=== PATIENT | female | born 1955 | race Caucasian/White ===

== ENCOUNTER 2022-06-15 06:13 | Day surgery (SDC) | payer MEDICARE ==
[2022-06-15] MEDS ORDERED: Lactated Ringers 1,000 ML IV SCH (06:30)
[2022-06-15] MEDS ORDERED: Versed 2 MG/2 ML Injection ONE (07:58)
[2022-06-15] MEDS ORDERED: Xylocaine-Mpf 2% 5 Ml Vial ONE (07:58)
[2022-06-15] MEDS ORDERED: DIPRIVAN 200 MG/20 ML IV ONE ×2 (07:58→08:30)
--- NOTE | 2022-06-15 08:56 | OP ---
SURGERY DATE/TIME: 06/15/2022 0810 PREOPERATIVE DIAGNOSIS: Anemia. POSTOPERATIVE DIAGNOSES: 1) Normal EGD. 2) Sigmoid colon polyp. 3) Internal hemorrhoids. PROCEDURES: 1) EGD. 2) Colonoscopy. SURGEON: Tray Barr M.D. ANESTHESIA: MAC by John Sinclair CRNA. ESTIMATED BLOOD LOSS: Minimal. SPECIMENS: Hot forceps polypectomy from the sigmoid colon. DESCRIPTION OF PROCEDURE: After informed written consent was obtained, the patient was taken to the endoscopy suite. He had a bite block inserted and then anesthesia was titrated to desired level of consciousness. The endoscope was inserted in the posterior oropharynx and under direct visualization the esophagus was traversed. Esophageal mucosa was normal in appearance. The gastroesophageal junction likewise was normal. Upon entering the stomach there is normal rugated gastric mucosa. There were no ulcerations or signs of bleeding in the gastric cavity. The pylorus was traversed. The first and second portions of the duodenum had normal mucosal appearance. On withdrawal again all mucosal structures were noted to be normal. The scope was removed and the scopes were switched. Digital rectal exam showed normal sphincter tone and no internal lesions. The scope was inserted in the rectum and sequentially the entire colonic mucosa was traversed. The level of the cecum was reached and verified with direct visualization of the ileocecal valve. Upon withdrawal careful mucosal inspection revealed small sessile polyps in the sigmoid colon which was grasped with forceps, cauterized and removed in its entirety and sent for pathology testing. Retroflexion was performed showed internal hemorrhoids and no other lesions. The scope was removed and the patient was transferred to the recovery room in good condition.
[2022-06-15 09:18] VITALS: O2SAT 98
[2022-06-15 09:30] VITALS: BP 174/84; PULSE 64
== END 2022-06-15 09:35 | disposition home or self-care (01) ==
LOC: SDC 06:13
PROVIDERS: ATTEND Family Medicine
DX: K63.5 Polyp of colon (principal); D64.9 Anemia, unspecified; K64.8 Other hemorrhoids; E11.9 Type 2 diabetes mellitus without complications
CPT/HCPCS: 82947; J2250; J2704

== ENCOUNTER 2024-03-05 11:39 | Emergency (ER) | payer MEDICARE ==
[2024-03-05 12:00] VITALS: RESP 18; TEMP 97.2
--- NOTE | 2024-03-05 12:19 | ERPHSYRPT ---
- History of Present Illness Time Seen by Provider: 03/05/24 12:10 Source: patient Exam Limitations: no limitations Patient Subjective Stated Complaint: Pt states "I started bactrim on the and it started to drain on the and it feels much better but Dr. Armenta w anted me to come here to maybe get it drained more." Triage Nursing Assessment: Pt presented alert and oriented X 3, skin wpd. Pt ambulates with an upright steady gait, able to speak in clear full sentences. PT has approx 4 cm x 4 xcm abscess noted to medial lower back. Physician History: 68-year-old female presents to emergency department as a referral from primary care doctor for imaging of a abscess to her low back. Patient has been on Bactrim for over 8 days. Primary care physician concern for abscess that may need to be surgically drained. Patient states the abscess has been draining slowly over time. No systemic manifestations regarding this abscess. Patient currently on Bactrim at this time. Patient otherwise feels well. She voices no other complaints or concerns at this time. Portions of this note were created with voice recognition technology. There may be grammatical, spelling, punctuation or sound alike errors Timing/Duration: today Severity: moderate Modifying Factors: Improves With: nothing Associated Symptoms: denies symptoms Allergies/Adverse Reactions: No Known Drug Allergies Allergy (Verified 06/15/22 07:01) Home Medications: Aspirin 81 mg PO DAILY 09/24/15 [History] Furosemide 40 mg [Lasix 40 MG] 40 mg PO DAILY 09/24/15 [History] Gabapentin [Neurontin] 300 mg PO TID 09/24/15 [History] Lisinopril 10 mg [Zestril 10 MG] 10 mg PO DAILY 09/24/15 [History] Metformin HCl 1000 mg [Glucophage 1000 MG] 1,000 mg PO BID 09/24/15 [History] Potassium Chloride 20 Meq [Klor-Con 20 MEQ] 20 meq PO DAILY 09/24/15 [History] Allopurinol 100 mg [Zyloprim 100 mg] 100 mg PO BID 04/22/22 [History] Insulin Aspart (Niacinamide) [Fiasp 100 Unit/ml Vial] See Rx Instructions .ROUTE .COMPLEX 04/22/22 [History] Pramipexole Di-HCl [Pramipexole Dihydrochloride] 0.125 mg PO DIRECTIONS UNKNOWN 04/22/22 [History] Semaglutide [Rybelsus] 14 mg PO DAILY 04/22/22 [History] Simvastatin 40 mg PO DAILY 04/22/22 [History] icosapent ethyL [Vascepa] 1 gm PO BID 04/22/22 [History] Insulin Pump Cart,Automated,Bt [Omnipod 5 G6 Pods (Gen 5)] 1 unit SQ PER HOUR 06/15/22 [History] Multivit with Iron,Minerals [Theratrum Complete 50 Plus] 1 tab PO DAILY 06/15/22 [History] Hx Tetanus, Diphtheria Vaccination/Date Given: No Hx Influenza Vaccination/Date Given: Yes Hx Pneumococcal Vaccination/Date Given: No Immunizations Up to Date: No Travel Risk - International Travel Have you traveled outside of the country in past 3 weeks: No - Emerging Infectious Disease Are you exhibiting symptoms associated with any current EIDs: No - Review of Systems Constitutional: No Symptoms, No Fever, No Chills Eyes: No Symptoms Ears, Nose, & Throat: No Symptoms Respiratory: No Symptoms, No Cough, No Dyspnea Cardiac: No Symptoms, No Chest Pain, No Edema, No Syncope Abdominal/Gastrointestinal: No Symptoms, No Abdominal Pain, No Nausea, No Vomiting, No Diarrhea Genitourinary Symptoms: No Symptoms, No Dysuria Musculoskeletal: No Symptoms, No Back Pain, No Neck Pain Skin: No Symptoms, No Rash Neurological: No Symptoms, No Dizziness, No Focal Weakness, No Sensory Changes Psychological: No Symptoms Endocrine: No Symptoms Hematologic/Lymphatic: No Symptoms Immunological/Allergic: No Symptoms All Other Systems: Reviewed and Negative - Past Medical History Pertinent Past Medical History: Yes Neurological History: Peripheral Neuropathy ENT History: No Pertinent History Cardiac History: Hypertension Respiratory History: No Pertinent History Endocrine Medical History: Diabetes Type II Musculoskeletal History: Osteoarthritis GI Medical History: No Pertinent History History: No Pertinent History Psycho-Social History: No Pertinent History Female Reproductive Disorders: No Pertinent History Other Medical History: NEUROPATHY IN B FEET AND HANDS. POSSIBLE HEART VALVE PROBLEM. L FOOT OA, GOUT. - Past Surgical History Past Surgical History: Yes Neuro Surgical History: No Pertinent History Cardiac: No Pertinent History Respiratory: No Pertinent History Gastrointestinal: No Pertinent History Genitourinary: No Pertinent History Musculoskeletal: Orthopedic Surgery Female Surgical History: No Pertinent History Other Surgical History: left foot. cysts removed from labia x3 - Social History Smoking Status: Never smoker Exposure to second hand smoke: No Drug Use: none Patient Lives Alone: No - Social Determinants of Health Will the patient participate in the screening: Yes Do you worry about a steady place to live?: No Do you have any problems with any of the following?: No known problems In the past 12 months,have you had to go without utilities?: No Transportation Issues: No Has anyone in your support network made you feel unsafe?: No Have you or anyone in your house had to go without enough: No - Nursing Vital Signs Nursing Vital Signs: Initial Vital Signs Temperature 97.2 F 03/05/24 11:55 Pulse Rate 65 03/05/24 11:55 Respiratory Rate 18 03/05/24 11:55 Blood Pressure 105/45 03/05/24 11:55 O2 Sat by Pulse Oximetry 98 03/05/24 11:55 Pain Scale Pain Intensity 0 - Physical Exam General Appearance: no apparent distress, alert Eye Exam: PERRL/EOMI, eyes nml inspection Ears, Nose, Throat Exam: normal ENT inspection, moist mucous membranes Neck Exam: normal inspection, non-tender, supple, full range of motion Respiratory Exam: normal breath sounds, lungs clear, airway intact, No respiratory distress Cardiovascular Exam: regular rate/rhythm, normal heart sounds, normal peripheral pulses Gastrointestinal/Abdomen Exam: soft, normal bowel sounds, No tenderness, No mass Back Exam: normal inspection, normal range of motion, No CVA tenderness, No v ertebral tenderness Extremity Exam: normal inspection, normal range of motion, pelvis stable Neurologic Exam: alert, oriented x 3, cooperative, normal mood/affect, nml cerebellar function, nml station & gait, sensation nml, No motor deficits Skin Exam: normal color, warm, dry, other (There is approximately a 3 x 3 cm area of redness. No obvious fluctuance. No active drainage at this time.), No rash Lymphatic Exam: No adenopathy SpO2 Interpretation: normal SpO2: 98 O2 Delivery: Room Air - Course Nursing assessment & vital signs reviewed: Yes Ordered Tests: Active Orders 24 hr Category Date Time Status CHEST ULTRASOUND [US] Stat Exams 03/05/24 12:12 Completed POCT GLUCOSE Stat Lab 03/05/24 12:28 Completed Lab/Rad Data: Laboratory Results 03/05/24 Range/Units 12:28 POC Glucometer 90 (74 to 106) mg/dL - Progress Progress: improved Progress Note: 68-year-old female referred to our ED for imaging studies of an abscess. I discussed the case with Dr. Antoine radiology who advised an ultrasound over CAT scan with contrast. I spoke to Dr. Antoine at approximately 12:14 PM. Ultrasound reveals a small abscess. We contacted general surgery. Patient will be seen by Dr. Butcher on . Patient to continue antibiotics in the meantime. Plan of care discussed with patient. She will follow-up as discussed. She voices no other complaints or concerns at this time. Dr. Armenta advised of the plan of care at approximately 1:[address] Armenta agrees with the plan of care Portions of this note were created with voice recognition technology. There may be grammatical, spelling, punctuation or sound alike errors Complexity of problem addressed is moderate acute complicated. No critical care time. Complex of data reviewed and analyzed is moderate. Test ordered test reviewed results analyzed and correlated clinically with history and physical exam. Risk of complication and or risk of morbidity/mortality patient management is low. Vital stable. Time spent to discharge patient approximately 15 minutes. Plan of care established for shared decision making. No social determinants of health present impede follow-up. Portions of this note were created with voice recognition technology. There may be grammatical, spelling, punctuation or sound alike errors 03/05/24 12:18 03/05/24 13:23 Counseled pt/family regarding: diagnosis, need for follow-up, rad results - Departure Departure Disposition: Home Clinical Impression: Abscess Condition: Stable Critical Care Time: No Referrals: BERNABE ARMENTA DO [Primary Care Provider] - Follow up/PCP as directed Additional Instructions: Discharge/Care Plan PARESHKATELYN HOLLY was seen on 03/05/24 in the Emergency Room. The patient was counseled regarding Diagnosis,Lab results, Imaging studies, need for follow up and when to return to the Emergency Room. Prescriptions given: Discharge Note I have spoken with the patient and/or caregivers. I have explained the patient's condition, diagnosis and treatment plan based on the information available to me at this time. I have answered the patient's and/or caregiver's questions and addressed any concerns. The patient and/or caregivers have as good understanding of the patient's diagnosis, condition and treatment plan as can be expected at this point. The vital signs have been stable. The patient's condition is stable and appropriate for discharge from the emergency department. The patient will pursue further outpatient evaluation with the primary care physician or other designated or consulting physician as outlined in the discharge instructions. The patient and/or caregivers are agreeable to this plan of care and follow-up instructions have been explained in detail. The patient a nd/or caregivers have received these instruction. The patient/and or caregivers are aware that any significant change in condition or worsening of symptoms should prompt an immediate return to this or the closest emergency department or call 911.
--- NOTE | 2024-03-05 12:56 | XRAY ---
Indication: Back abscess. Targeted soft tissue ultrasound left lower back demonstrates 1.5 x 0.7 x 1.2 cm subcutaneous heterogeneous fluid collection with surrounding color Doppler flow, possibly abscess in the right clinical setting. No other focal solid/cystic soft tissue mass or abnormal fluid collection.
[2024-03-05 13:25] VITALS: O2SAT 98
[2024-03-05 13:31] VITALS: BP 125/77; PULSE 80
== END 2024-03-05 13:33 | disposition home or self-care (01) ==
LOC: ED 11:39
DX: L02.212 Cutaneous abscess of back [any part, except buttock and flank] (principal); E11.9 Type 2 diabetes mellitus without complications; Z79.899 Other long term (current) drug therapy
CPT/HCPCS: 76604; 82947; 99283

== ENCOUNTER 2024-06-18 14:31 | Emergency (ER) | payer MEDICARE ==
[2024-06-18 15:01] VITALS: TEMP 98.5
[2024-06-18] MEDS ORDERED: MORPHINE SULFATE 4 MG INJ ONE (15:12)
[2024-06-18] MEDS: MORPHINE SULFATE 4 MG INJ IM ONE (15:14)
--- NOTE | 2024-06-18 15:37 | XRAY ---
Indication: Pain following fall. Comparison: None 2 AP views left shoulder demonstrates anterior humeral head dislocation. Elsewhere osteopenia, mild AC degenerative arthropathy, and mild multilevel degenerative spondylosis.
[2024-06-18] MEDS ORDERED: Zofran 4 MG/2 ML VIAL ONE (15:55)
[2024-06-18] MEDS ORDERED: SUBLIMAZE 100 MCG/2 ML ONE (15:56)
[2024-06-18] MEDS ORDERED: Sodium Chloride 0.9% 500 ML 500 ML IV ONE (15:56)
[2024-06-18] MEDS ORDERED: NARCAN 2 MG/2 ML ONE (15:58)
[2024-06-18] MEDS ORDERED: Narcan 0.4 MG/ML ONE (16:03)
--- NOTE | 2024-06-18 16:05 | ERPHSYRPT ---
- History of Present Illness Time Seen by Provider: 06/18/24 14:33 Source: patient, family Exam Limitations: no limitations Patient Subjective Stated Complaint: pt got tied up in her dogs leash and fell on her left shoulder Triage Nursing Assessment: Pt brought to the ER by her , hypertensive, rates pain as 10/10, deformity to the left shoulder, denies any other injuries, pulses normal, skin n/w/d, no difficulty breathing, appears to be in moderate pain Physician History: 69-year-old morbidly obese female with history of hypertension, hyperlipidemia, diabetes mellitus, congestive heart failure presented in the ER with complaint of left shoulder pain after her dog pulled the leash and she fell with outstretched left arm.. Did not hit her head. No loss of consciousness. Complaining of moderate to severe sharp shooting pain with minimal movements in the left shoulder. No numbness or tingling in the left upper extremity. No chest pain palpitations or shortness of breath. No injury anywhere else. Allergies/Adverse Reactions: No Known Drug Allergies Allergy (Verified 06/18/24 14:56) Home Medications: Aspirin 81 mg PO DAILY 09/24/15 [History] Furosemide 40 mg [Lasix 40 MG] 40 mg PO DAILY 09/24/15 [History] Gabapentin [Neurontin] 300 mg PO TID 09/24/15 [History] Lisinopril 10 mg [Zestril 10 MG] 10 mg PO DAILY 09/24/15 [History] Metformin HCl 1000 mg [Glucophage 1000 MG] 1,000 mg PO BID 09/24/15 [History] Potassium Chloride 20 Meq [Klor-Con 20 MEQ] 20 meq PO DAILY 09/24/15 [History] Allopurinol 100 mg [Zyloprim 100 mg] 100 mg PO BID 04/22/22 [History] Insulin Aspart (Niacinamide) [Fiasp 100 Unit/ml Vial] See Rx Instructions .ROUTE .COMPLEX 04/22/22 [History] Pramipexole Di-HCl [Pramipexole Dihydrochloride] 0.125 mg PO DIRECTIONS UNKNOWN 04/22/22 [History] Semaglutide [Rybelsus] 14 mg PO DAILY 04/22/22 [History] Simvastatin 40 mg PO DAILY 04/22/22 [History] icosapent ethyL [Vascepa] 1 gm PO BID 04/22/22 [History] Insulin Pump Cart,Auto,Bt,G6/7 [Omnipod 5 [id number] Pods (Gen 5)] 1 unit SQ PER HOUR 06/15/22 [History] Multivit with Iron,Minerals [Theratrum Complete 50 Plus] 1 tab PO DAILY 06/15/22 [History] Hx Tetanus, Diphtheria Vaccination/Date Given: No Hx Influenza Vaccination/Date Given: Yes Hx Pneumococcal Vaccination/Date Given: No Travel Risk - International Travel Have you traveled outside of the country in past 3 weeks: No - Emerging Infectious Disease Are you exhibiting symptoms associated with any current EIDs: No - Review of Systems Constitutional: No Symptoms Eyes: No Symptoms Ears, Nose, & Throat: No Symptoms Respiratory: No Symptoms Cardiac: No Symptoms Abdominal/Gastrointestinal: No Symptoms Musculoskeletal: Fall, Injury, Joint Pain, Joint Swelling Skin: No Symptoms Neurological: No Symptoms Endocrine: No Symptoms Hematologic/Lymphatic: No Symptoms - Past Medical History Pertinent Past Medical History: Yes Neurological History: Peripheral Neuropathy ENT History: No Pertinent History Cardiac History: Hypertension Respiratory History: No Pertinent History Endocrine Medical History: Diabetes Type II Musculoskeletal History: Osteoarthritis GI Medical History: No Pertinent History History: No Pertinent History Psycho-Social History: No Pertinent History Female Reproductive Disorders: No Pertinent History Other Medical History: NEUROPATHY IN B FEET AND HANDS. POSSIBLE HEART VALVE PROBLEM. L FOOT OA, GOUT. - Past Surgical History Past Surgical History: Yes Neuro Surgical History: No Pertinent History Cardiac: No Pertinent History Respiratory: No Pertinent History Gastrointestinal: No Pertinent History Genitourinary: No Pertinent History Musculoskeletal: Orthopedic Surgery Female Surgical History: No Pertinent History Other Surgical History: left foot. cysts removed from labia x3 - Social History Smoking Status: Never smoker Exposure to second hand smoke: Yes Drug Use: none Patient Lives Alone: No - Social Determinants of Health Will the patient participate in the screening: Yes Do you worry about a steady place to live?: No Do you have any problems with any of the following?: No known problems In the past 12 months,have you had to go without utilities?: No Transportation Issues: No Has anyone in your support network made you feel unsafe?: No Have you or anyone in your house had to go without enough: No - Nursing Vital Signs Nursing Vital Signs: Initial Vital Signs Temperature 98.5 F 06/18/24 14:56 Pulse Rate 75 06/18/24 14:56 Blood Pressure 152/57 06/18/24 14:56 O2 Sat by Pulse Oximetry 95 06/18/24 14:56 Pain Scale Pain Intensity 10 - Physical Exam General Appearance: no apparent distress Eyes, Ears, Nose, Throat Exam: normal ENT inspection Neck Exam: normal inspection, supple, full range of motion Cardiovascular/Respiratory Exam: chest non-tender, normal breath sounds, regular rate/rhythm Abdominal Exam: non-tender, soft, no organomegaly Shoulder Exam: bone tenderness, deformity, limited ROM, pain, soft tissue tender ness Elbow/Forearm Exam: normal inspection, non-tender, no evidence of injury, normal ROM Wrist Exam: normal inspection, non-tender, no evidence of injury Hand Exam: normal inspection, non-tender, no evidence of injury Neuro/Tendon Exam: normal sensation Mental Status Exam: alert, oriented x 3, cooperative Skin Exam: normal color SpO2 Interpretation: normal SpO2: 95 O2 Delivery: Room Air Procedures - Joint Reduction Time of Procedure: 16:14 Timeout: Performed Joint Reduction Site: Left, shoulder Conscious Sedation: Yes Reduction Attempts: 1 Pre-Procedure Neurovascular Exam: neurovascular intact, well perfused, no neuro deficit Post Procedure Neurovascular Exam: neurovascular intact, good alignment Post Joint Reduction Film: joint reduced - Procedural Sedation Indication: joint reduction Preparation: consent signed, iv access, previous anesthia/sedation without complications, constant attendance, court monitor, oxygen, procedure explained, pulse oximeter, suction Sedation Parenteral: Etomidate, Fentanyl Response during procedure: light sedation Post-Procedure Response: return to baseline mental status Ordered Tests: Active Orders 24 hr Category Date Time Status SHOULDER Stat Exams 06/18/24 15:02 Completed SHOULDER Stat Exams 06/18/24 16:26 Completed Standby STAT RT 06/18/24 16:32 Completed Medication Summary Generic Name Dose Route Start Last Admin Trade Name Freq PRN Reason Stop Dose Admin Sodium Chloride 500 mls @ 150 mls/hr 06/18/24 17:00 06/18/24 16:54 Sodium Chloride 0.9% 500 Ml IV 07/18/24 16:59 150 mls/hr .[id number] SAMANTHA Administration Discontinued Medications Generic Name Dose Route Start Last Admin Trade Name Freq PRN Reason Stop Dose Admin Etomidate 15 mg 06/18/24 16:35 06/18/24 16:50 Etomidate 20 Mg/10 Ml Amp IV 06/18/24 16:36 15 mg ONCE STA Administration Fentanyl Citrate Confirm 06/18/24 15:56 Fentanyl Citrate 100 Mcg/2 Ml* Vial Administered 06/18/24 15:57 Dose 100 mcg .ROUTE .STK-MED ONE Fentanyl Citrate 100 mcg 06/18/24 16:35 06/18/24 16:50 Fentanyl Citrate 100 Mcg/2 Ml* Vial IV 06/18/24 16:36 100 mcg STAT ONE Administration Sodium Chloride Confirm 06/18/24 15:56 Sodium Chloride 0.9% 500 Ml Administered 06/18/24 15:57 Dose 500 mls @ ud IV .STK-MED ONE Morphine Sulfate 4 mg 06/18/24 15:08 06/18/24 15:14 Morphine Sulfate 4 Mg/Ml Injection IM 06/18/24 15:09 4 mg STAT ONE Administration Morphine Sulfate Confirm 06/18/24 15:12 Morphine Sulfate 4 Mg/Ml Injection Administered 06/18/24 15:13 Dose 4 mg .ROUTE .STK-MED ONE Naloxone HCl Confirm 06/18/24 15:58 Naloxone Hcl 2mg/2 Ml 2 Mg/2 Ml Syr Administered 06/18/24 15:59 Dose 2 mg .ROUTE .STK-MED ONE Naloxone HCl Confirm 06/18/24 16:03 Naloxone Hcl 0.4 Mg/Ml Ml Administered 06/18/24 16:04 Dose 0.4 mg .ROUTE .STK-MED ONE Ondansetron HCl Confirm 06/18/24 15:55 Ondansetron Hcl 4 Mg/2 Ml Vial Administered 06/18/24 15:56 Dose 4 mg .ROUTE .STK-MED ONE Ondansetron HCl 4 mg 06/18/24 16:35 06/18/24 16:50 Ondansetron Hcl 4 Mg/2 Ml Vial IV 06/18/24 16:36 4 mg STAT ONE Administration - Progress Progress: improved Progress Note: 06/18/24 18:14 69-year-old is evaluated in the ER for ground-level mechanical fall with dislocation left shoulder. She is given symptomatic treatment for pain. Discussed with patient and family in detail about moderate sedation and reduction which he agreed. Under moderate sedation reduction is obtained. Patient remained stable postredu ction. Distal neurovascular intact and improved mobility. Patient is observed for almost 2 hours and is being discharged with outpatient orthopedics follow- up. Discussed signs symptoms of worsening needing return to ER which she seems understanding. Patient does take pain medication at home which she is advised to continue. Counseled pt/family regarding: diagnosis, need for follow-up, rad results Medical Desision Making - Independent Historian Additional History obtained from: Spouse - Diagnostic Testing Diagnostic test were ordered, analyzed, and reviewed by me: Yes Radiological Interpretation: Reviewed by me - Risk of complications The pt has a mod risk of morbidity or mortality based on: Need for prescription drug management, Need for minor surgical intervention in patient with know risk factors - Departure Departure Disposition: Home Clinical Impression: Shoulder joint dislocation, Fall Condition: Stable Critical Care Time: No Referrals: BERNABE ARMENTA DO [Primary Care Provider] - Follow up with PCP 1 day DYLAN AGUIRRE DO [ACTIVE STAFF] - Follow up/PCP as directed (Call for appointment for reevaluation) Instructions: Shoulder Dislocation (DC), Sedation for procedures in adults Additional Instructions: Take pain medications as needed. Follow-up with your primary care and orthopedics for reevaluation. Return to ER for worsening pain, deformity, numbness tingling weakness of left extremity.
--- NOTE | 2024-06-18 16:49 | XRAY ---
Indication: Post reduction. Comparison: Taken earlier in the day. AP and scapular Y view left shoulder demonstrates successful reduction previous humeral head dislocation. Stable osteopenia, AC degenerative arthropathy, and multilevel degenerative spondylosis.
[2024-06-18] MEDS: SUBLIMAZE 100 MCG/2 ML IV ONE (16:50)
[2024-06-18] MEDS: Amidate 20 MG/10 ML IV STA (16:50)
[2024-06-18] MEDS: Zofran 4 MG/2 ML VIAL IV ONE (16:50)
[2024-06-18] MEDS: Sodium Chloride 0.9% 500 ML 500 ML IV SCH (16:54)
[2024-06-18 19:15] VITALS: BP 148/88; PULSE 69; RESP 16; O2SAT 97
== END 2024-06-18 18:31 | disposition home or self-care (01) ==
LOC: ED 14:31
DX: S43.015A Anterior dislocation of left humerus, initial encounter (principal); W01.0XXA Fall on same level from slipping, tripping and stumbling without subsequent striking against object, initial encounter; E78.5 Hyperlipidemia, unspecified; I11.0 Hypertensive heart disease with heart failure; I50.9 Heart failure, unspecified; E11.42 Type 2 diabetes mellitus with diabetic polyneuropathy; Z79.84 Long term (current) use of oral hypoglycemic drugs; Z79.4 Long term (current) use of insulin; Z79.899 Other long term (current) drug therapy
CPT/HCPCS: 23655; 73030; 94799; 96372; 96374; 99284; 99285; J2270; J2310; J2405; J3010